=== PATIENT | female | born 1975 | race Caucasian/White ===

== ENCOUNTER 2019-01-28 12:31 | Emergency (ER) | payer BC, OTHER ==
[2019-01-28] MEDS ORDERED: NS 0.9% 1000 ML** 1,000 ML IV ONE (14:40)
[2019-01-28] MEDS ORDERED: ED Vancomycin 1 GM/250 ML 1 GM/250 ML PREMIX.SET IVPB ONE (14:41)
--- NOTE | 2019-01-28 14:41 | ED ---
Throat Pain/Nasal Congestion - HPI Summary HPI Summary: This patient is a 43 year old female presenting to [facility] with a chief complaint of right eye swelling since 3 days ago. She was here on Sunday and given an Abx for her eye, and she states it has only gotten worse. She rates her pain 3/10 in severity. She denies pain upon movement of the eye and she states that she can see. She reports nasal congestion. - History of Current Complaint Chief Complaint: EDEyeProblem Time Seen by Provider: 01/28/19 14:34 Hx Obtained From: Patient Onset/Duration: Lasting Days Severity: Moderate Associated Signs And Symptoms: Positive: Nasal Discharge - Allergies/Home Medications Allergies/Adverse Reactions: Allergies Allergy/AdvReac Type Severity Reaction Status Date / Time No Known Allergies Allergy Verified 04/02/16 13:41 Home Medications: Home Medications Cephalexin CAP* [Keflex 500 CAP*] 500 mg PO TID 01/28/19 [History Confirmed ] PMH/Surg Hx/FS Hx/Imm Hx Cardiovascular History: Denies: Hx Coronary Artery Disease Respiratory History: Denies: Hx Asthma Psychiatric History: Reports: Hx Depression - Surgical History Surgery Procedure, Year, and Place: Right leg, mass removed Infectious Disease History: No Infectious Disease History: Denies: Traveled Outside the [place] in Last 30 Days - Family History Known Family History: Positive: Hypertension, Diabetes - Social History Alcohol Use: Occasionally Substance Use Type: Reports: Marijuana Smoking Status (MU): Never Smoked Tobacco Review of Systems Positive: Erythema, Other - Edema. Denies pain on movement. Positive: Nasal Discharge All Other Systems Reviewed And Are Negative: Yes Physical Exam - Summary Physical Exam Summary: Appearance: The patient is well-nourished in no acute distress and in no acute pain. Skin: The skin is warm and dry and skin color reflects adequate perfusion. HEENT: The head is normocephalic and atraumatic. The pupils are equal and reactive. The conjunctivae are clear and without drainage. Nares are patent and without drainage. Mouth reveals moist mucous membranes and the throat is without erythema and exudate. The external ears are intact. The ear canals are patent and without drainage. The tympanic membranes are intact. Indurated on the whole upper right eyelid. Swelling and erythema on the upper orbitis. Neck: The neck is supple with full range of motion and non-tender. There are no carotid bruits. There is no neck vein distension. Respiratory: Chest is non-tender. Lungs are clear to auscultation and breath sounds are symmetrical and equal. Cardiovascular: Heart is regular rate and rhythm. There is no murmur or rub auscultated. There is no peripheral edema and pulses are symmetrical and equal. Abdomen: The abdomen is soft and non-tender. There are normal bowel sounds heard in all four quadrants and there is no organomegaly palpated. Musculoskeletal: There is no back tenderness noted. Extremities are non-tender with full range of motion. There is good capillary refill. There is no peripheral edema or calf tenderness elicited. Neurological: Patient is alert and oriented to person, place and time. The patient has symmetrical motor strength in all four extremities. Cranial nerves are grossly intact. Deep tendon reflexes are symmetrical and equal in all four extremities. Psychiatric: The patient has an appropriate affect and does not exhibit any anxiety or depression. Triage Information Reviewed: Yes Vital Signs On Initial Exam: Initial Vitals Temp Pulse Resp BP Pulse Ox 98.8 F 91 18 119/78 98 01/28/19 12:35 01/28/19 12:35 01/28/19 12:35 01/28/19 12:35 01/28/19 12:35 Vital Signs Reviewed: Yes Procedures - Incision and Drainage Right Eye Site: Right eyelid Anesthesia: Lidocaine - 1.0% Instrument(s): Scalpel - 11 blade Diagnostics - Vital Signs Vital Signs Temp Pulse Resp BP Pulse Ox 01/28/19 12:35 98.8 F 91 18 119/78 98 - Laboratory Result Diagrams: 01/28/19 14:48 01/28/19 14:48 Lab Statement: Any lab studies that have been ordered have been reviewed, and results considered in the medical decision making process. - CT Orbital CT Interpretation Completed By: Radiologist Summary of CT Findings: 1. Right orbital preseptal cellulitis. 2. Mucosal thickening and small air fluid level within the sphenoid sinus suggesting of sinusitis.. ED Provider has reviewed this report. Orbit CT Interpretation Completed By: Radiologist Summary of CT Findings: 1. Right orbital preseptal cellulitis. 2. Mucosal thickening and small air fluid level within the sphenoid sinus suggesting of sinusitis.. ED Provider has reviewed this report. EENT Course/Dx - Course Course Of Treatment: I saw Ms. Freya a couple days ago when she had a small bite-looking area on her right upper lid. It was indurated and I gave her a prescription for Keflex. Since that time it is gotten worse. She is now has some redness inferior to her orbit and the lateral upper lid is swollen and a little bit fluctuant. It is also quite indurated. She was afebrile and nontoxic in appearance. Labs were obtained and were unremarkable. I opened the abscess area and was able to express about a cc of pus. I will switch her to clindamycin at this point. I still think that she can tolerate outpatient treatment at this point this is clearly a preseptal infection and does not involve her eye. - Diagnoses Provider Diagnoses: Abscess of eyelid, right Discharge - Sign-Out/Discharge Documenting (check all that apply): Patient Departure - Discharge Patient Received Moderate/Deep Sedation with Procedure: No - Discharge Plan Condition: Stable Disposition: HOME Prescriptions: Clindamycin HCl 300 mg PO QID #28 capsule Patient Education Materials: Abscess (ED) Referrals: Nilam Rosario PCB DESIGNER [Primary Care Provider] - Additional Instructions: Return to ED with any new or worsening symptoms. - Billing Disposition and Condition Condition: STABLE Disposition: Home - Attestation Statements Document Initiated by Scribe: Yes Documenting Scribe: Flip [place] Provider For Whom Serg is Documenting (Include Credential): Irvin Nicole MD Scribe Attestation: Flip Horta, scribed for Irvin Nicole MD on 01/28/19 at 2041. Scribe Documentation Reviewed: Yes Provider Attestation: The documentation as recorded by the Flip clemens accurately reflects the service I personally performed and the decisions made by me, Irvin Nicole MD Status of Scribe Document: Viewed
[2019-01-28] MEDS ORDERED: VANCOMYCIN IVPB ONE ×2 (15:00)
[2019-01-28] MEDS ORDERED: NS 0.9% IVPB ONE ×2 (15:00)
[2019-01-28] MEDS ORDERED: Vancomycin(*) 1,000 MG in NS 0.9% 250 ML* 250 ML IVPB ONE (15:00)
[2019-01-28 15:07] LABS: ABS Eosinophils 0.1 10^3/ul (0-0.6); ABS Lymphocytes 1.7 10^3/ul (1.0-4.8); ABS Monocytes 0.6 10^3/ul (0-0.8); ABS Neutrophils 5.9 10^3/ul (1.5-7.7); Eosinophil % 0.7 %; Hematocrit 36 % (35-47); Hemoglobin 12.2 g/dL (12.0-16.0); Lymphocyte % 20.7 %; Mean Corpuscular HGB Conc 34 g/dL (31-36); Mean Corpuscular Hemoglobin 29 pg (27-31); Mean Corpuscular Volume 85 fL (80-97); Mean Platelet Volume 8.1 fL (7.4-10.4); Platelet Count 250 10^3/uL (150-450); Red Blood Count 4.29 10^6 /uL (3.70-4.87); Red Cell Distribution Width 14 % (10.5-15); White Blood Count 8.3 10^3/uL (3.5-10.8)
[2019-01-28 15:22] LABS: Albumin 4.2 g/dL (3.2-5.2); Albumin/Globulin Ratio 1.5 (1-3); BUN/Creatinine Ratio 15.7 (8-20); C Reactive Protein 35.5 mg/L (<8.01); Calcium 9.6 mg/dL (8.6-10.3); EGFR African American 109.5 (>60); EGFR Non-African American 90.5 (>60); Globulin 2.8 g/dL (2-4); Potassium 3.6 mmol/L (3.5-5.0); Total Bilirubin 0.5 mg/dL (0.2-1.0)
[2019-01-28] MEDS ORDERED: Lidocaine 1% MPF ** 5 ML VIAL ONE (16:46)
[2019-01-28] MEDS ORDERED: Lidocaine 1% MPF ** 5 ML VIAL INJ ONE (16:47)
[2019-01-28] MEDS ORDERED: Neomycin/Polym/Bacit TOP OINT* 15 GM TOPICAL ONE (16:56)
[2019-01-28] MEDS ORDERED: traMADol TAB* 50 MG PO ONE (17:22)
[2019-01-28 17:35] VITALS: BP 117/80
--- NOTE | 2019-01-28 19:17 | PN ---
Progress Note - Progress Note Date of Service: 01/28/19 Note: Received a call from microbiology regarding culture results for eye swab on this patient taken this morning. Positive for gram-positive cocci staph aureus , negative for MRSA. Patient was prescribed clindamycin which is appropriate treatment.
--- NOTE | 2019-01-31 05:42 | PN ---
Progress Note - Progress Note Date of Service: 01/31/19 Note: Patient place on Clindamycin which final culture shows is sensitive to. No further action required.
== END 2019-01-28 17:51 | disposition home or self-care (01) ==
LOC: ED 12:31
DX: H00.031 Abscess of right upper eyelid (principal); H05.011 Cellulitis of right orbit; B95.61 Methicillin susceptible Staphylococcus aureus infection as the cause of diseases classified elsewhere; R09.81 Nasal congestion
CPT/HCPCS: 36415; 67700; 70480; 80053; 83605; 85025; 86140; 87040; 87070; 87077; 87186; 87205; 87640; 87641; 96361; 96365; 99283; A9270-GY; J3370